=== PATIENT | female | born 1995 | race American Indian/Alaskan Native ===

== ENCOUNTER 2019-10-22 13:48 | Emergency (ER) | payer BC, OTHER ==
--- NOTE | 2019-10-22 14:33 | Event Note ---
ED Screening Note Date of service: 10/22/19 ED Screening Note: This initial assessment/diagnostic orders/clinical plan/treatment(s) is/are subject to change based on patients health status, clinical progression and re- assessment by fellow clinical providers in the ED. Further treatment and workup at subsequent clinical providers discretion. Patient/guardian urged not to elope from the ED as their condition may be serious if not clinically assessed and managed. Initial orders include: Pt c/o abd pain, vaginal discharge, LMP in August. Ordered cbc, BMP, HCG quant, ua and lipase
[2019-10-22 15:06] LABS: Basophils % (Auto) 0.8 % (0.0-1.8); Hematocrit 28.1 % (30.3-42.9); Hemoglobin 8.8 gm/dl (10.1-14.3); Lymphocytes # (Auto) 1.2 K/mm3 (1.2-5.4); Lymphocytes % (Auto) 26.2 % (13.4-35.0); Mean Corpuscular HGB Conc 31 % (30-34); Monocytes # (Auto) 0.5 K/mm3 (0.0-0.8); Monocytes % (Auto) 10.5 % (0.0-7.3); Platelet Count 526 K/mm3 (140-440); Red Blood Count 4.45 M/mm3 (3.65-5.03)
[2019-10-22 15:14] LABS: Mean Corpuscular Volume 63 fl (79-97); Red Cell Distribution Width 20.6 % (13.2-15.2)
[2019-10-22 15:17] LABS: BUN/Creatinine Ratio 16; Blood Urea Nitrogen 8 mg/dL (7-17); Calcium 9.3 mg/dL (8.4-10.2); Hemolysis Index 35
[2019-10-22 15:35] LABS: Bilirubin,Urine NEG (Negative); Blood,Urine NEG (Negative); Color,Urine Yellow (Yellow); Mucus,Urine 3+ /HPF
[2019-10-22 18:15] VITALS: BP 98/77
[2019-10-22] MEDS ORDERED: METOCLOPRAMIDE 10 MG TAB PO ONE (18:38)
--- NOTE | 2019-10-22 18:38 | Emergency Department Report ---
HPI - General Chief Complaint: Nausea/Vomiting/Diarrhea Time Seen by Provider: 10/22/19 14:27 - HPI HPI: Room 35 The pt is a 23 y/o F p/w a cc of "I want to know if I'm ." The pt states her LMP was 09/06/19 and she is usually regular. The pt states she has had n/v x 2 weeks. Pt states she has intermittent LAP but none currently ED Past Medical Hx - Past Medical History Previous Medical History?: Yes Additional medical history: Kidney infection in Jul 2019 - Surgical History Past Surgical History?: Yes Additional Surgical History: C section - Family History Family history: no significant - Social History Smoking Status: Never Smoker Substance Use Type: None (denies illicit drug use), Alcohol (occ) - Medications Home Medications: Home Medications Medication Instructions Recorded Confirmed Last Taken Type Ciprofloxacin [Ciprofloxacin ORAL 500 mg PO Q12H #20 ml 08/11/19 Unknown Rx LIQ] Phenazopyridine [Pyridium] 200 mg PO TID #9 tab 08/11/19 Unknown Rx Metoclopramide [Reglan] 10 mg PO QID PRN #30 tablet 10/22/19 Unknown Rx ED Review of Systems ROS: Stated complaint: VOMIT/FATIGUE/ABD PAIN Other details as noted in HPI Constitutional: no symptoms reported Eyes: denies: eye pain ENT: denies: throat pain Respiratory: no symptoms reported Cardiovascular: denies: chest pain Endocrine: no symptoms reported Gastrointestinal: abdominal pain, nausea, vomiting Genitourinary: abnormal menses Musculoskeletal: denies: back pain Neurological: denies: headache Physical Exam - Physical Exam Vital Signs: Vital Signs 10/22/19 10/22/19 14:26 18:14 Temperature 99.6 F 98.0 F Pulse Rate 91 H 67 Respiratory 18 16 Rate Blood Pressure 118/80 Blood Pressure 98/77 [Left] O2 Sat by Pulse 100 99 Oximetry Physical Exam: GEN: WD WN F sitting on stretcher in NAD HEENT: NCAT, EOMI NECK:Trachea midline, no stridor CV: rrr no m/r/g Pulm: CTAB. no resp distress ABD: s/nt/nd +BS Neuro: GCS 15 SKIN: no diaphoresis MS: no evidence of acute injury ED Course Vital Signs 10/22/19 10/22/19 14:26 18:14 Temperature 99.6 F 98.0 F Pulse Rate 91 H 67 Respiratory 18 16 Rate Blood Pressure 118/80 Blood Pressure 98/77 [Left] O2 Sat by Pulse 100 99 Oximetry ED Medical Decision Making - Lab Data Result diagrams: 10/22/19 14:45 10/22/19 14:45 Laboratory Tests 10/22/19 10/22/19 10/22/19 14:45 14:45 14:45 WBC 4.8 RBC 4.45 Hgb 8.8 L Hct 28.1 L MCV 63 L MCH 20 L MCHC 31 RDW 20.6 H Plt Count 526 H Lymph % (Auto) 26.2 Benzie % (Auto) 10.5 H Eos % (Auto) 1.0 Baso % (Auto) 0.8 Lymph # 1.2 Benzie # 0.5 Eos # 0.0 Baso # 0.0 Seg Neutrophils % 61.5 Seg Neutrophils # 2.9 Sodium 134 L Potassium 4.2 Chloride 103.9 Carbon Dioxide 21 L Anion Gap 13 BUN 8 Creatinine 0.5 L Estimated GFR > 60 BUN/Creatinine Ratio 16 Glucose 105 H Calcium 9.3 Lipase HCG, Quant 98883 H Urine Color Urine Turbidity Urine pH Ur Specific [place] Urine Protein Urine Glucose (UA) Urine Ketones Urine Blood Urine Nitrite Urine Bilirubin Urine Urobilinogen Ur Leukocyte Esterase Urine WBC (Auto) Urine RBC (Auto) U Epithel Cells (Auto) Urine Mucus 10/22/19 10/22/19 14:45 15:10 WBC RBC Hgb Hct MCV MCH MCHC RDW Plt Count Lymph % (Auto) Benzie % (Auto) Eos % (Auto) Baso % (Auto) Lymph # Benzie # Eos # Baso # Seg Neutrophils % Seg Neutrophils # Sodium Potassium Chloride Carbon Dioxide Anion Gap BUN Creatinine Estimated GFR BUN/Creatinine Ratio Glucose Calcium Lipase 22 HCG, Quant Urine Color Yellow Urine Turbidity Slightly-cloudy Urine pH 7.0 Ur Specific [place] 1.021 Urine Protein 30 mg/dl Urine Glucose (UA) Neg Urine Ketones Neg Urine Blood Neg Urine Nitrite Neg Urine Bilirubin Neg Urine Urobilinogen 4.0 Ur Leukocyte Esterase Tr Urine WBC (Auto) 2.0 Urine RBC (Auto) 4.0 U Epithel Cells (Auto) 6.0 Urine Mucus 3+ - Radiology Data Radiology results: report reviewed (pelvic ultrasound), image reviewed (pelvic ultrasound) [facility] [address] [place] [address] Ultrasound Report Signed Patient: TERESA FORREST MR#: [id number] : 1995 Acct:[id number] Age/Sex: 23 / F ADM Date: 10/22/19 Loc: ED Attending Dr: Ordering Physician: RYAN KHAN MD Date of Service: 10/22/19 Procedure(s): US OB transvaginal Accession Number(s): [id number] cc: RYAN KHAN MD OB Ultrasound HISTORY: , lower abd pain. TECHNIQUE: Grayscale and color Doppler imaging performed. COMPARISON: None FINDINGS: Uterus measures 9.2 x 5.1 x 6.4 cm with endometrial echo complex measuring 2.7 cm. There is an intrauterine gestation with crown-rump length measuring 5 mm. This would correspond with an EGA of 6 weeks and 2 days and an estimated delivery date of 06/14/2020. A small yolk sac is also identified. cardiac activity is present with heart rate of 111 bpm. Ovaries are unremarkable. Probable functional cyst in the left ovary measuring 1.6 cm. IMPRESSION: Single viable intrauterine gestation as above. Signer Name: Michael Okeefe MD Signed: 10/22/2019 8:51 PM Workstation Name: [id number] Transcribed By: JW Dictated By: Michael Okeefe MD Electronically Authenticated By: Michael Okeefe MD Signed Date/Time: 10/22/192050 DD/ 48 TD/TT: - Differential Diagnosis , uti, gastritis Critical care attestation.: If time is entered above; I have spent that time in minutes in the direct care of this critically ill patient, excluding procedure time. ED Disposition Clinical Impression: Disposition: DC-01 TO HOME OR SELFCARE Is pt being admited?: No Does the pt Need Aspirin: No Condition: Stable Instructions: (ED) Additional Instructions: Return to the emergency department should you develop worsening symptoms, inability to tolerate food or liquids, high fever or any other concerns Prescriptions: Metoclopramide [Reglan] 10 mg PO QID PRN #30 tablet PRN Reason: Nausea Referrals: KHALIDA FERNANDES MD [Staff Physician] - DENIS (Dr. Fernandes is an F[employer]OR [employer]DER. Please follow with her to be established as a patient) Time of Disposition: 21:02
--- NOTE | 2019-10-22 20:55 | Ultrasound Report ---
OB Ultrasound HISTORY: , lower abd pain. TECHNIQUE: Grayscale and color Doppler imaging performed. COMPARISON: None FINDINGS: Uterus measures 9.2 x 5.1 x 6.4 cm with endometrial echo complex measuring 2.7 cm. There is an intrauterine gestation with crown-rump length measuring 5 mm. This would correspond with an EGA o f 6 weeks and 2 days and an estimated delivery date of 06/14/2020. A small yolk sac is also identified . cardiac activity is present with heart rate of 111 bpm. Ovaries are unremarkable. Probable fu nctional cyst in the left ovary measuring 1.6 cm. IMPRESSION: Single viable intrauterine gestation as above. Signer Name: Michael Okeefe MD Signed: 10/22/2019 8:51 PM Workstation Name: [id number]
== END 2019-10-22 21:25 | disposition home or self-care (01) ==
LOC: ED 13:48
DX: O21.9 Vomiting of pregnancy, unspecified (principal); O26.891 Other specified pregnancy related conditions, first trimester; R10.9 Unspecified abdominal pain; Z79.899 Other long term (current) drug therapy; Z3A.01 Less than 8 weeks gestation of pregnancy
CPT/HCPCS: 36415; 76801; 76817; 80048; 81001; 83690; 84702; 85025

== ENCOUNTER 2021-02-12 22:05 | Outpatient (CLI) | payer BC, OTHER ==
[2021-02-13] MEDS ORDERED: ACETAMINOPHEN 325 MG TAB PO PRN (00:28)
[2021-02-13] MEDS ORDERED: LACTATED RINGERS 1,000 ML IV SCH (00:30)
[2021-02-13 00:39] LABS: Hematocrit 21.6 % (30.3-42.9); Hemoglobin 6.7 gm/dl (10.1-14.3); Mean Corpuscular HGB Conc 31 % (30-34); Platelet Count 360 K/mm3 (140-440); Red Blood Count 3.43 M/mm3 (3.65-5.03); Red Cell Distribution Width 19.7 % (13.2-15.2)
[2021-02-13 00:40] LABS: Mean Corpuscular Volume 63 fl (79-97)
[2021-02-13] MEDS ORDERED: SODIUM CHLORIDE 0.9% 500 ML 500 ML IV SCH (01:00)
[2021-02-13] MEDS ORDERED: diphenhydrAMINE 25 MG CAP PO ONE (01:28)
[2021-02-13 07:53] LABS: Hemoglobin 7.2 gm/dl (10.1-14.3); Mean Corpuscular HGB Conc 33 % (30-34); Platelet Count 308 K/mm3 (140-440); Red Blood Count 3.39 M/mm3 (3.65-5.03)
[2021-02-13 08:09] LABS: Mean Corpuscular Volume 65 fl (79-97); Red Cell Distribution Width 21.9 % (13.2-15.2)
[2021-02-13] MEDS ORDERED: SODIUM CHLORIDE 0.9% 500 ML 500 ML IV NR (09:59)
--- NOTE | 2021-02-13 10:02 | History and Physical Report ---
History of Present Illness Date of examination: 02/13/21 Chief complaint: Severe Anemia in History of present illness: 25-year-old -0-1-1 at 33-5/7-weeks by LMP with OLGA 03/29/2021 Patient was noted to be anemic in the office to a hemoglobin of 6.7. She was admitted for blood transfusion. No obstetric complaints History of previous x1 desires [facility] patient Past History Past Medical History: other (Anemia) Past Surgical History: section - Obstetrical History : 3 Medications and Allergies Allergies Allergy/AdvReac Type Severity Reaction Status Date / Time No Known Allergies Allergy Unverified 08/11/19 10:28 Home Medications Medication Instructions Recorded Confirmed Last Taken Type Ciprofloxacin [Ciprofloxacin ORAL 500 mg PO Q12H #20 ml 08/11/19 Unknown Rx LIQ] Phenazopyridine [Pyridium] 200 mg PO TID #9 tab 08/11/19 Unknown Rx Metoclopramide [Reglan] 10 mg PO QID PRN #30 tablet 10/22/19 Unknown Rx Active Meds: Active Medications Acetaminophen (Acetaminophen 325 Mg Tab) 650 mg PO Q6H PRN PRN Reason: Pain, Mild (1-3) Last Admin: 02/13/21 02:30 Dose: 650 mg Documented by: Lactated Ringer's (Lactated Ringers) 1,000 mls @ 125 mls/hr IV DIRECT MEG Sodium Chloride (Nacl 0.9% 500 Ml) 500 mls @ 50 mls/hr IV DIRECT MEG Last Admin: 02/13/21 01:00 Dose: 50 mls/hr Documented by: - Vital Signs Vital signs: Vital Signs Pulse BP 89 114/56 02/13/21 02:09 02/13/21 02:09 Temp Pulse Resp BP Pulse Ox 98.6 F 71 18 94/48 69 L 02/13/21 02:31 02/13/21 09:55 02/13/21 03:59 02/13/21 06:31 02/13/21 09:55 Results Result Diagrams: 02/13/21 07:45 Abnormal lab results 02/13/21 02/13/21 02/13/21 Range/Units 00:23 00:23 07:45 RBC 3.43 L 3.39 L (3.65-5.03) M/mm3 Hgb 6.7 L 7.2 L (10.1-14.3) gm/dl Hct 21.6 L 22.0 L (30.3-42.9) % MCV 63 L 65 L (79-97) fl MCH 19 L 21 L (28-32) pg RDW 19.7 H 21.9 H (13.2-15.2) % Crossmatch See Detail All other labs normal. Assessment and Plan Transfuse two units for a target Hb~8.0 or greater ferrous sulfate CFM Maternal and status stable at bedside Georgi Chahal MD
[2021-02-13 16:48] VITALS: BP 115/74
== END 2021-02-13 17:25 | disposition home or self-care (01) ==
LOC: TRG 22:05 → LD 22:56 → TRG 02-13 17:25
PROVIDERS: ATTEND Obstetrics & Gynecology
DX: O99.013 Anemia complicating pregnancy, third trimester (principal); Z3A.33 33 weeks gestation of pregnancy
CPT/HCPCS: 36415; 36430; 59025; 85027; 86850; 86900; 86901; 86920; J7040; P9016; 96360; 96365

== ENCOUNTER 2021-03-23 12:15 | Inpatient (IN) | payer BC, OTHER ==
[2021-03-23] MEDS ORDERED: LACTATED RINGERS 1,000 ML IV ONE (14:05)
[2021-03-23] MEDS ORDERED: BICITRA ORAL LIQD 30ML PO SCH (14:39)
[2021-03-23] MEDS ORDERED: FAMOTIDINE 20 MG/2 ML INJ IV SCH (14:39)
[2021-03-23] MEDS ORDERED: METOCLOPRAMIDE 10 MG/2 ML INJ IV SCH (14:39)
[2021-03-23] MEDS ORDERED: fentaNYL 100 MCG/2 ML INJ IV ONE (15:00)
[2021-03-23] MEDS ORDERED: OXYTOCIN DRIP 30 UNITS/500 ML BAG IV SCH ×2 (15:00→20:00)
[2021-03-23] MEDS ORDERED: ceFAZolin/Water 2 GM/20 ML 2 GM/20 ML SYRINGE IV NR (15:00)
--- NOTE | 2021-03-23 15:11 | History and Physical Report ---
History of Present Illness Date of admission: 03/23/21 12:16 Chief complaint: Contractions History of present illness: 25 year old presents with complaint of contractions. Patient received care at [facility] OB-MATHEMATICAL SCIENCES PROFESSOR and records are available. LMP 06/22/2020. EDC 03/29/2021. significant for the following: history of section with a previous , anemia requiring blood transfusion, trichomonas during , treated and ERASMO negative. labs are as follow: O+, antibody screen negative, rubella immune, hepatitis B surface antigen negative, HIV negative, RPR nonreactive, hemoglobin electrophoresis AA, gonorrhea negative, chlamydia negative, trichomonas positive/negative, AFP negative, 1 hour sugar test 84, GBS unknown (no result on chart). Past History Past Medical History: asthma (as a child), other (vitamin D deficiency) Past Surgical History: section MATHEMATICAL SCIENCES PROFESSOR History: trichomonas (treated and cured). denies: abnormal PAP smear, chlamydia, gonorrhea, hepatitis B, herpes, HIV, syphilis Family/Genetic History: diabetes Social history: lives with family, full code. denies: smoking, alcohol abuse, prescription drug abuse, IV drug use - Obstetrical History Expected Date of Delivery: 03/29/21 Actual Gestation: 39 Week(s) 1 Day(s) : 3 Para: 1 Hx # Term Pregnancies: 1 Number of Pregnancies: 0 Spontaneous Abortions: 1 Induced : 0 Number of Living Children: 1 Medications and Allergies Allergies Allergy/AdvReac Type Severity Reaction Status Date / Time No Known Allergies Allergy Unverified 08/11/19 10:28 Home Medications Medication Instructions Recorded Confirmed Last Taken Type Ciprofloxacin [Ciprofloxacin ORAL 500 mg PO Q12H #20 ml 08/11/19 03/23/21 Unknown Rx LIQ] Phenazopyridine [Pyridium] 200 mg PO TID #9 tab 08/11/19 03/23/21 Unknown Rx Metoclopramide [Reglan] 10 mg PO QID PRN #30 tablet 10/22/19 03/23/21 Unknown Rx Active Meds: Active Medications Citric Acid/Sodium Citrate (Bicitra Oral Liqd 30ml) 30 ml PO ONCE MEG Stop: 03/24/21 14:38 Famotidine (Famotidine 20 Mg/2 Ml Inj) 20 mg IV ONCE MEG Stop: 03/24/21 14:38 Fentanyl (Fentanyl 100 Mcg/2 Ml Inj) 100 mcg IV ONCE ONE Stop: 03/23/21 15:01 Lactated Ringer's (Lactated Ringers) 1,000 mls @ 999 mls/hr IV BOLUS ONE Stop: 03/23/21 15:05 Lactated Ringer's (Lactated Ringers) 1,000 mls @ 2,250 mls/hr IV PREOP MEG Stop: 03/24/21 15:12 Oxytocin/Sodium Chloride (Pitocin/Ns 30 Unit/500ml) 30 units in 500 mls @ 0 mls/hr IV TITR MEG; Protocol Cefazolin Sodium (Ancef/Sterile Water 2 Gm/20 Ml) 2 gm in 20 mls @ 80 mls/hr IV PREOP NR; Protocol Stop: 03/24/21 14:59 Metoclopramide HCl (Metoclopramide 10 Mg/2 Ml Inj) 10 mg IV ONCE MEG Stop: 03/24/21 14:38 Review of Systems All systems: negative (contractions) - Vital Signs Vital signs: Vital Signs Temp 98.2 F 03/23/21 12:29 Temp Pulse Resp BP Pulse Ox 98.2 F 89 100 03/23/21 12:29 03/23/21 13:16 03/23/21 13:16 - Physical Exam Abdomen: Positive: normal appearance, soft. Negative: distention, tenderness, guarding, rigidity Genitourinary (Female): Positive: normal external genitalia, normal perenium. Negative: perineal/vulvar lesions Vagina: Positive: normal moisture Uterus: Positive: enlarged. Negative: tender Anus/Rectum: Positive: normal perianal skin Extremities: Positive: normal. Negative: tenderness - Obstetrical FHR: category 1 Uterine Contraction Monitor Mode: External Cervical Dilatation: 1 (Exam by RN in triage) Cervical Effacement Percentage: 50 station: -3 Uterine Contraction Pattern: Regular Uterine Contraction Intensity: Moderate Results All other labs normal. Assessment and Plan A: at 39 weeks, 1 day gestation. History of section with previous . Early labor. Asthma. P: Admit. EFM. Consulted with Dr. Rasmussen re: this patient. Dr. Rasmussen to perform repeat section.
[2021-03-23] MEDS: LACTATED RINGERS 1,000 ML IV SCH ×2 (15:35→15:43)
[2021-03-23 16:33] LABS: Hematocrit 28.9 % (30.3-42.9); Hemoglobin 9.3 gm/dl (10.1-14.3); Mean Corpuscular HGB Conc 32 % (30-34); Mean Corpuscular Volume 72 fl (79-97); Platelet Count 287 K/mm3 (140-440); Red Blood Count 3.99 M/mm3 (3.65-5.03)
[2021-03-23 16:34] LABS: Red Cell Distribution Width 28.4 % (13.2-15.2)
[2021-03-23 17:14] LABS: Anisocytosis 3+; Hypochromasia 1+; Total Cells Counted 100
[2021-03-23 17:15] LABS: Giant Platelets Rare; Ovalocytes Rare; Tear Drop Cells Rare
[2021-03-23 17:17] LABS: Large Platelets Rare; Platelet Estimate Consistent w Auto
--- NOTE | 2021-03-23 17:58 | Anesthesia Day of Surgery ---
Anesthesia Day of Surgery - Day of Surgery Patient Examined: Yes Patient H&P Reviewed: Yes Patient is NPO: Yes Beta Blockers: No Cardiac Clearance: No Pulmonary Clearance: No Twin's Test: N/A
--- NOTE | 2021-03-23 18:00 | Anesthesia Consultation ---
Anesthesia Consult and Med Hx Date of service: 03/23/21 - Airway Anesthetic Teeth Evaluation: Poor ROM Head & Neck: Adequate Mental/Hyoid Distance: Adequate Mallampati Class: Class II Intubation Access Assessment: Probably Good - Pulmonary Exam CTA: Yes - Cardiac Exam Cardiac Exam: RRR - Pre-Operative Health Status ASA Pre-Surgery Classification: ASA2 Proposed Anesthetic Plan: Epidural - Pulmonary Hx Smoking: No Hx Asthma: Yes (childhood) Hx Respiratory Symptoms: No SOB: No COPD: No Home Oxygen Therapy: No Hx Pneumonia: No Hx Sleep Apnea: No - Cardiovascular System Hx Hypertension: No Hx Coronary Artery Disease: No Hx Heart Attack/AMI: No Hx Angina: No Hx Percutaneous Transluminal Coronary Angioplasty (PTCA): No Hx Cardia Arrhythmia: No Hx Pacemaker: No Hx Internal Defibrillator: No Hx Valvular Heart Disease: No Hx Heart Murmur: No Hx Peripheral Vascular Disease: No - Central Nervous System Hx Neuromuscular Disorder: No Hx Seizures: No CVA: No Hx Back Pain: Yes Hx Psychiatric Problems: No - Gastrointestinal Hx Ulcer: No Hx Gastroesophageal Reflux Disease: Yes - Endocrine Hx Renal Disease: No Hx End Stage Renal Disease: No Hx Cirrhosis: No Hx Liver Disease: No Hx Insulin Dependent Diabetes: No Hx Non-Insulin Dependent Diabetes: No Hx Thyroid Disease: No Hx Hypothyroidism: No Hx Hyperthyroidism: No - Hematic Hx Anemia: Yes (blood transfusion) Hx Sickle Cell Disease: No - Other Systems Hx Alcohol Use: No Hx Substance Use: No Hx Cancer: No Hx Obesity: Yes
[2021-03-23] MEDS ORDERED: NALOXONE 0.4 MG/1 ML INJ IV PRN ×2 (18:01→19:27)
[2021-03-23] MEDS ORDERED: HYDROmorphone 1 MG/1 ML INJ IV PRN (18:01)
[2021-03-23] MEDS ORDERED: ONDANSETRON 4 MG/2 ML INJ IV PRN (18:01)
[2021-03-23] MEDS ORDERED: PHENYLEPHRINE/NS 1,000 MCG/10 ML SYRINGE (OR USE) IV ONE (18:32)
[2021-03-23] MEDS ORDERED: BUPIVACAINE/PF (0.25%) 2.5 MG/ML 30 ML VIAL INFILTRATI ONE ×2 (19:13)
[2021-03-23] MEDS ORDERED: dexAMETHasone 20 MG/5 ML VIAL ONE (19:13)
[2021-03-23] MEDS ORDERED: IBUPROFEN 800 MG TAB PO PRN (19:27)
[2021-03-23] MEDS ORDERED: LANOLIN/ZINC/DIMETHICONE (LANSINOH) 7 GM TP PRN (19:27)
[2021-03-23] MEDS ORDERED: WITCH HAZEL/ GLYCERIN PAD TP PRN (19:27)
--- NOTE | 2021-03-23 19:36 | Procedure Note ---
Date of procedure: 03/23/21 Pre-op diagnosis: previous c/s, labor Post-op diagnosis: same Procedure: REPEAT L/T CSECTION The patient was a 25-year-old female with a previous section in early labor and there was indication for her procedure at this time repeat low transverse section. Preoperative diagnosis previous section in labor Postoperative diagnosis same Procedure was a low transverse section Anesthesia spinal Drains Martinez specimen none time of surgery was 40 minutes The baby weight 6 pounds 13.7 ounces liveborn female Apgars 9 9 Estimated blood loss 700 cc Intravenous fluids was 1200 cc Urine was 100 cc Detail of the surgery patient was taken to the operatory given a spinal anesthetic adequate for the procedure she was then prepped and draped usual manner she had an indwelling Martinez catheter. We then created a Pfannenstiel incision along the previous Pfannenstiel incision with a scalpel and in the abdominal cavity anatomically. Vesicouterine uterine peritoneum was opened with Metzenbaums. The bladder was sharply dissected off the lower uterine segment. A low transverse incision made in the lower uterine segment with the scalpel and was extended with scissors. A liveborn female was delivered vertex Apgars 9 9 weight 6 pounds 13.7 ounces. A cord blood segment was obtained the uterus was cleaned of debris membranes and tissue. Uterine incision was repaired in 2 layers first layer was in deep myometrium using running locking #0 Vicryl was superficial myometrium was closed with running locking #0 Vicryl. We placed an adhesion barrier over the vesicouterine peritoneum area gutters were cleaned of debris membranes suction of tissue use drop back into the abdominal cavity all instruments were removed from the abdominal cavity. Instrument count needle lap sponge count was correct anterior abdominal peritoneum was repaired running 2-0 chromic. Fascia was closed with running locking 0 Vicryl. Subcutaneous tissue closed with 2-0 chromic. The skin was repaired with a running subcuticular 4-0 Vicryl on a Louis needle and drape with Dermabond. The patient tolerated procedure well she was then returned to recovery room in stable condition. Anesthesia: spinal Surgeon: JOSE A DEUTSCH Estimated blood loss: other (700 CCS) IV fluids: 1,200 Urine output: 100 Pathology: none Specimen disposition: discarded Condition: stable Disposition: PACU
--- NOTE | 2021-03-23 20:21 | Progress Note ---
Spinal Anesthesia Block - Spinal Anesthesia Block Start Time: 18:19 Stop Time: 18:24 Performed by:: CAMACHO PISANO Procedure: Patient IDed, H&P reviewed, all questions and concerns were answered, and consent was signed. Timeout was performed at bedside. Patient in sitting position. Sterile prep and drape was performed. [3] ml of 1% lidocaine skin wheal at L[3]- L [4]. Needle introducer advanced. 25 gauge spinal needle advanced. Clear, free flowing CSF. negative blood, negative paresthesia. Spinal dose given. All needles removed. Patient tolerated procedure.
--- NOTE | 2021-03-23 20:23 | Progress Note ---
Objective - Constitutional Vitals: Vital Signs - 12hr 03/23/21 03/23/21 03/23/21 12:29 12:36 12:41 Temperature 98.2 F Pulse Rate 57 L 81 Respiratory Rate Blood Pressure O2 Sat by Pulse 88 99 Oximetry 03/23/21 03/23/21 03/23/21 12:45 12:46 12:51 Temperature Pulse Rate 81 81 Respiratory Rate Blood Pressure O2 Sat by Pulse 78 L 100 100 Oximetry 03/23/21 03/23/21 03/23/21 12:56 13:01 13:06 Temperature Pulse Rate 87 75 88 Respiratory Rate Blood Pressure O2 Sat by Pulse 100 100 100 Oximetry 03/23/21 03/23/21 03/23/21 13:11 13:16 15:03 Temperature Pulse Rate 84 89 80 Respiratory Rate Blood Pressure O2 Sat by Pulse 100 100 100 Oximetry 03/23/21 03/23/21 03/23/21 15:08 15:09 15:36 Temperature Pulse Rate 73 74 89 Respiratory Rate Blood Pressure 120/55 O2 Sat by Pulse 100 74 L Oximetry 03/23/21 03/23/21 03/23/21 15:37 15:44 15:45 Temperature 98.0 F Pulse Rate 76 Respiratory 20 Rate Blood Pressure 101/57 O2 Sat by Pulse Oximetry 03/23/21 03/23/21 03/23/21 16:37 17:12 17:13 Temperature Pulse Rate 76 87 Respiratory 16 Rate Blood Pressure 124/70 O2 Sat by Pulse 100 Oximetry 03/23/21 03/23/21 03/23/21 17:18 17:23 17:28 Temperature Pulse Rate 68 73 74 Respiratory Rate Blood Pressure O2 Sat by Pulse 100 100 100 Oximetry 03/23/21 03/23/21 03/23/21 17:33 17:38 17:43 Temperature Pulse Rate 109 H 89 84 Respiratory Rate Blood Pressure O2 Sat by Pulse 100 100 100 Oximetry 03/23/21 03/23/21 03/23/21 17:48 17:53 17:58 Temperature Pulse Rate 73 84 74 Respiratory Rate Blood Pressure O2 Sat by Pulse 100 100 100 Oximetry 03/23/21 03/23/21 03/23/21 18:03 19:35 19:40 Temperature 97.5 F L Pulse Rate 80 71 68 Respiratory 18 16 Rate Blood Pressure 97/40 101/40 O2 Sat by Pulse 100 100 100 Oximetry 03/23/21 03/23/21 19:45 20:00 Temperature Pulse Rate 74 78 Respiratory 18 18 Rate Blood Pressure 99/51 109/61 O2 Sat by Pulse 100 100 Oximetry - Labs CBC & Chem 7: 03/23/21 15:40 Labs: Abnormal lab results 03/23/21 Range/Units 15:40 WBC 11.1 H (4.5-11.0) K/mm3 Hgb 9.3 L (10.1-14.3) gm/dl Hct 28.9 L (30.3-42.9) % MCV 72 L (79-97) fl MCH 23 L (28-32) pg RDW 28.4 H (13.2-15.2) % Seg Neuts % (Manual) 83.0 H (40.0-70.0) % Lymphocytes % (Manual) 9.0 L (13.4-35.0) % Seg Neutrophils # Man 9.2 H (1.8-7.7) K/mm3 Lymphocytes # (Manual) 1.0 L (1.2-5.4) K/mm3 Regional Anesthesia Block - Regional Anesthesia Block Start Time: 19:41 Stop Time: 19:49 Performed By:: CAMACHO PISANO Procedure: Patient consented for TAP block for post surgical pain management. Patient identified, monitors placed, and time out performed. TAP identified bilaterally via ultrasound. Skin prepped bilaterally with [chlorhexidine] and [22g stimuplex] needle advanced to the TAP. [Marcaine 0.25% 35ml] injected under ultrasound guidance on the [left] side. [Marcaine 0.25% 35ml] injected under ultrasound guidance on the [right] side. Negative aspiration every 5mL, No change in heart rate or rhythm. Patient tolerated the procedure well. No apparent complications seen.
[2021-03-23] MEDS: D5W/LACTATED RINGERS 1,000 ML IV SCH (23:11)
[2021-03-24] MEDS: MORPHINE 4 MG/1 ML INJ IV PRN ×2 (00:26→03:56)
[2021-03-24] MEDS: oxyCODONE /ACETAMINOPHEN 5-325MG TAB PO PRN ×4 (01:49→22:30)
[2021-03-24] MEDS: D5W/LACTATED RINGERS 1,000 ML IV SCH (07:12)
[2021-03-24] MEDS: FERROUS SULFATE 325 MG TAB PO SCH (08:08)
[2021-03-24 11:44] LABS: Hematocrit 26.3 % (30.3-42.9); Hemoglobin 8.5 gm/dl (10.1-14.3)
--- NOTE | 2021-03-24 12:50 | Progress Note ---
Assessment and Plan A: POD #1 Asymptomatic Anemia P: Follow Routine PostOp Orders Continue PO FeSO4 Infed 100mg IM x 1 dose Subjective - Subjective Date of service: 03/24/21 Patient reports: appetite normal, voiding normally, pain well controlled, fla tus, ambulating normally : doing well, bottle feeding (and ) Objective - Vital Signs Latest vital signs: Vital Signs Temp Pulse Resp BP Pulse Ox 03/24/21 12:06 97.6 F 66 18 113/69 100 03/24/21 07:34 98.0 F 68 18 115/62 100 03/24/21 07:11 18 03/24/21 06:17 16 03/24/21 04:54 97.8 F 71 18 125/83 97 03/24/21 04:26 18 03/24/21 03:56 18 03/24/21 02:49 18 03/24/21 01:49 22 03/24/21 00:56 18 03/24/21 00:42 98.0 F 71 20 127/79 100 03/24/21 00:26 18 03/23/21 21:06 98.0 F 78 20 108/60 99 03/23/21 20:30 77 17 121/77 100 03/23/21 20:15 83 16 99/63 100 03/23/21 20:00 78 18 109/61 100 03/23/21 19:45 74 18 99/51 100 03/23/21 19:40 68 16 101/40 100 03/23/21 19:35 97.5 F L 71 18 97/40 100 03/23/21 18:03 80 100 03/23/21 17:58 74 100 03/23/21 17:53 84 100 03/23/21 17:48 73 100 03/23/21 17:43 84 100 03/23/21 17:38 89 100 03/23/21 17:33 109 H 100 03/23/21 17:28 74 100 03/23/21 17:23 73 100 03/23/21 17:18 68 100 03/23/21 17:13 87 100 03/23/21 17:12 76 124/70 03/23/21 16:37 16 03/23/21 15:45 98.0 F 03/23/21 15:44 76 101/57 03/23/21 15:37 20 03/23/21 15:36 89 120/55 03/23/21 15:09 74 74 L 03/23/21 15:08 73 100 03/23/21 15:03 80 100 03/23/21 13:16 89 100 03/23/21 13:11 84 100 03/23/21 13:06 88 100 03/23/21 13:01 75 100 03/23/21 12:56 87 100 03/23/21 12:51 81 100 Intake and Output 03/23/21 03/24/21 03/24/21 22:59 06:59 14:59 Intake Total 4427 151 2128 Output Total 250 1600 350 Balance 1350 -1000 650 Intake: IV 1600 1000 D5lr 1,000 ml @ 125 mls/ 1000 hr IV DIRECT MEG Rx#: [id number] Lactated Ringers 1,000 ml 300 @ 2250 mls/hr IV PREOP MEG Rx#:[id number] Oral 360 Intake, Free Water 240 Output: Urine 250 1600 350 Indwelling Catheter 200 1600 350 Other: Total, Intake Amount 360 Total, Output Amount 200 1600 350 # Voids Indwelling Catheter 1 - Exam Breasts: Present: normal Cardiovascular: Present: Regular rate Lungs: Present: Clear to auscultation, Normal air movement Abdomen: Present: normal appearance, soft, normal bowel sounds Uterus: Present: normal, firm, fundal height below umbilicus Extremities: Present: normal Incision: Present: normal, dry, intact - Labs Labs: Abnormal lab results 03/23/21 03/24/21 Range/Units 15:40 10:52 WBC 11.1 H (4.5-11.0) K/mm3 Hgb 9.3 L 8.5 L (10.1-14.3) gm/dl Hct 28.9 L 26.3 L (30.3-42.9) % MCV 72 L (79-97) fl MCH 23 L (28-32) pg RDW 28.4 H (13.2-15.2) % Seg Neuts % (Manual) 83.0 H (40.0-70.0) % Lymphocytes % (Manual) 9.0 L (13.4-35.0) % Seg Neutrophils # Man 9.2 H (1.8-7.7) K/mm3 Lymphocytes # (Manual) 1.0 L (1.2-5.4) K/mm3
[2021-03-24] MEDS ORDERED: IRON DEXTRAN COMPLEX 100 MG/2 ML INJ IM ONE (13:00)
--- NOTE | 2021-03-24 17:57 | Post Anesthesia Evaluation ---
- Post Anesthesia Evaluation Patient Participated: Yes Airway Patent: Yes Stable Respiratory Function: Yes Nausea/Vomiting: No Temp > 96.8F: Yes Pain Manageable: Yes Adequeate Hydration: Yes Anesthesia Complications: No Block Receding Appropriately: Yes Patient on Ventilator: No
[2021-03-24] MEDS ORDERED: oxyCODONE /ACETAMINOPHEN 5-325MG TAB ONE (22:27)
[2021-03-25] MEDS: oxyCODONE /ACETAMINOPHEN 5-325MG TAB PO PRN ×2 (04:32→12:07)
[2021-03-25] MEDS: FERROUS SULFATE 325 MG TAB PO SCH (10:28)
--- NOTE | 2021-03-25 13:20 | Progress Note ---
Assessment and Plan A: S/P Repeat LTCS Asymptomatic anemia P: Continue routine pp care Cont Fe and advise foods high in Fe Encourage ambulation D/c home if stable Subjective - Subjective Date of service: 03/25/21 Principal diagnosis: s/p repeat LTCS Patient reports: appetite normal, voiding normally, pain well controlled, flatus, ambulating normally [place]: doing well, nursing well Objective - Vital Signs Latest vital signs: Vital Signs Temp Pulse Resp BP BP Pulse Ox 03/25/21 12:07 16 03/25/21 09:00 98.1 F 81 18 115/67 97 03/25/21 00:00 98.6 F 67 18 114/78 03/24/21 20:56 98.0 F 86 18 121/63 100 03/24/21 16:51 97.8 F 85 18 113/58 100 Intake and Output 03/24/21 03/25/21 03/25/21 22:59 06:59 14:59 Intake Total 600 Balance 600 Intake: Intake, Free Water 600 Other: # Voids Void 1 - Exam Breasts: Present: normal Abdomen: Present: normal appearance, soft, normal bowel sounds Vulva: both: normal Uterus: Present: normal, firm, fundal height below umbilicus Extremities: Present: normal Incision: Present: normal, dry, intact
--- NOTE | 2021-03-25 13:35 | Discharge Summary ---
Providers - Providers Date of Admission: 03/23/21 12:16 Date of discharge: 03/25/21 Attending physician: JOSE A DEUTSCH MD Primary care physician: JOSE A DEUTSCH MD Hospitalization Reason for admission: section Delivery: Procedure: repeat low transverse Episiotomy: none Laceration: none Incision: normal, dry, intact Other procedures: none complications: other (anemia) Discharge diagnosis: IUP at term delivered baby: female Hospital course: Pt was admitted to L&D for a repeat LTCS. She developed asymptomaic anemia post deliver and was d/cd home in stable condition per pt request. See H&p, delivery summary and pp notes. Disposition: - TO HOME OR SELFCARE Plan - Provider Discharge Summary Activity: routine, no sex for 6 weeks, no heavy lifting 4 weeks, no strenuous exercise Diet: routine Instructions: routine Additional instructions: [] Smoking cessation referral if applicable(refer to patient education folder for contact #) [] Refer to [facility] Booklet Call your doctor immediately for: * Fever > 100.5 * Heavy vaginal bleeding ( >1 pad per hour) * Severe persistent headache * Shortness of breath * Reddened, hot, painful area to leg or breast * Drainage or odor from incision. * Keep incision clean and dry at all times and follow doctor's instructions regarding bathing/showering - Follow up plan Follow up: JOSE A DEUTSCH MD [Primary Care Provider] - 14 Days
[2021-03-25 17:23] VITALS: BP 121/70
== END 2021-03-25 15:45 | disposition home or self-care (01) | DRG 766 ==
LOC: TRG 12:15 → APU 12:16 → OBSVTOIN 12:16 → APU 12:16 → TRG 14:44 → OB 20:45
PROC: 10D00Z1 Extraction of Products of Conception, Low, Open Approach (ICD-10-PCS; principal; 2021-03-23)
DX: O34.211 Maternal care for low transverse scar from previous cesarean delivery (principal); O99.52 Diseases of the respiratory system complicating childbirth; J45.909 Unspecified asthma, uncomplicated; O99.02 Anemia complicating childbirth; Z3A.39 39 weeks gestation of pregnancy; Z37.0 Single live birth; Z83.3 Family history of diabetes mellitus; K21.9 Gastro-esophageal reflux disease without esophagitis; Z20.822 Contact with and (suspected) exposure to COVID-19; D64.9 Anemia, unspecified
CPT/HCPCS: 36415; 59025; 85007; 85014; 85018; 85025; 86850; 86900; 86901; 96360; 96361; G0378; J1100; J1750; J2270; J2370; J2765; J3010; J3490; J7120; J7121; U0003